=== PATIENT | male | born 1995 | race Caucasian/White ===

== ENCOUNTER 2019-08-19 14:54 | Emergency (ER) | payer BC, OTHER ==
[~2019-08-19] VITALS: Ht 182.9 cm; Wt 143.1 kg
--- NOTE | 2019-08-19 15:00 | NUR ---
THIS IS A 24 YO MALE BIB [facility] FROM HOME FOR "FLU-LIKE SYMTPOMS" STARTING YESTERDAY WITH GENERAL MALAISE, FEVERS, N/V AND PRODUCTIVE COUGH WITH "GREENISH-YELLOWISH MUCOUS". PER MOTHER SHE GAVE PT "A HALF OF A COLD AND FLU TABLET". PT AO X 4. SKIN WARM AND DRY. RESP EVEN AND UNLABORED. PT C/O NAUSEA. PT HAD ONE EPISODE OF VOMITING THIS AM. PT ON CONT BP ,CARDIAC AND O2 MONITORS. CALL LIGHT WITHIN REACH. WILL CONT TO MONITOR PT.
[2019-08-19] MEDS ORDERED: KETOROLAC 30 MG/1 ML IM ONE (15:30)
[2019-08-19] MEDS ORDERED: ONDANSETRON ODT 4 MG PO ONE (15:30)
[2019-08-19] MEDS ORDERED: KETOROLAC 60 MG/2 ML ONE (15:31)
[2019-08-19] MEDS ORDERED: ONDANSETRON ODT 4 MG ONE (15:31)
--- NOTE | 2019-08-19 15:40 | NUR ---
Break RN note: Pt medicated per MAR for RODRIGUEZ and nausea. POC discussed with pt. Pt denies other needs.
[2019-08-19 16:00] LABS: RAPID INFLUENZA A POSITIVE (Negative); RAPID INFLUENZA B Negative (Negative)
--- NOTE | 2019-08-19 16:06 | NUR ---
po fluids provided.
--- NOTE | 2019-08-19 16:33 | NUR ---
RAVI HERNANDEZ AT BEDSIDE FOR RECHECK/EXPLANATION OF RESULTS. PT AND MOTHER AND FATHER VERBALIZE UNDERSTANDING OF RESULTS. PT RESTING ON GURNEY WITH EYES CLOSED. NO ACUTE DISTRESS NOTED AT THIS TIME. SKIN WARM AND DRY. RESP EVEN AND UNLABORED. CALL LIGHT WITHIN REACH. WILL CONT TO MONITOR PT.
[2019-08-19 16:55] VITALS: BP 134/66
== END 2019-08-19 17:01 | disposition home or self-care (01) ==
LOC: ED 16:50
DX: J10.1 Influenza due to other identified influenza virus with other respiratory manifestations (principal); B34.9 Viral infection, unspecified; M79.10 Myalgia, unspecified site; R51 Headache; R00.0 Tachycardia, unspecified
CPT/HCPCS: 71046; 87400; 96372; 99284; J1885; Q0162